=== PATIENT | male | born 1950 | race Caucasian/White ===

== ENCOUNTER 2017-11-29 00:25 | Emergency (ER) | payer OTHER ==
[~2017-11-29] VITALS: Ht 170.2 cm; Wt 90.7 kg
[2017-11-29 01:11] LABS: BASOPHILS # (AUTO) 0.1 K/uL (0.0-8.0); BASOPHILS % (AUTO) 1.1 % (0.0-2.0); EOSINOPHILS # (AUTO) 0.4 K/uL (0.0-0.7); EOSINOPHILS % (AUTO) 3.2 % (0.0-7.0); HEMATOCRIT 29.7 % (36.7-47.1); HEMOGLOBIN 10.2 g/dL (12.5-16.3); LYMPHOCYTES # (AUTO) 1.5 K/uL (20.0-40.0); LYMPHOCYTES % (AUTO) 12.4 % (20.5-51.5); MEAN CORPUSCULAR HEMOGLOBIN 34.7 uug (23.8-33.4); MEAN CORPUSCULAR HGB CONC 34 g/dL (32.5-36.3); MEAN CORPUSCULAR VOLUME 100.9 fL (73.0-96.2); MONOCYTES # (AUTO) 0.9 K/uL (2.0-10.0); MONOCYTES % (AUTO) 7.2 % (0.0-11.0); NEUTROPHILS # (AUTO) 9.3 K/uL (1.8-8.9); NEUTROPHILS % (AUTO) 76.1 % (38.5-71.5); PLATELET COUNT (AUTO) 378 K/uL (152-348); RED BLOOD CELL COUNT(AUTO) 2.94 MIL/uL (4.06-5.63); WHITE BLOOD COUNT (AUTO) 12.2 K/uL (3.6-10.2)
[2017-11-29 01:24] LABS: BILIRUBIN,DIRECT 0.1 mg/dL (0.0-0.2); BILIRUBIN,TOTAL 0.4 mg/dL (0.2-1.0); CREATININE 0.9 mg/dL (0.6-1.3); POTASSIUM 4.7 mmol/L (3.5-5.1); TOTAL PROTEIN, SERUM 5.2 g/dL (6.4-8.2)
--- NOTE | 2017-11-29 01:30 | NUR ---
PT IN BED. PT IS CONFUSED AND DISORIENTED. PT IS BEING PULLING AT IV LINE AND NG TUBING AND INTERFERING MEDICAL CARE. WILL CONSULT WITH MD BURKS ABOUT POSSIBLE SOLUTIONS.
[2017-11-29] MEDS ORDERED: LAMO150T2 PO (01:39)
[2017-11-29] MEDS ORDERED: CLON0.5T PO (01:39)
[2017-11-29] MEDS ORDERED: CALC-20 PO (01:39)
[2017-11-29] MEDS ORDERED: BECL10.62 IH (01:39)
[2017-11-29] MEDS ORDERED: ALBU18HF2 INH (01:39)
[2017-11-29] MEDS ORDERED: BECLOMETHASONE (01:39)
[2017-11-29] MEDS ORDERED: ATOR20TA PO (01:39)
[2017-11-29] MEDS ORDERED: FOLI1TAB16 PO (01:39)
[2017-11-29] MEDS ORDERED: LOSA50TA21 PO (01:39)
[2017-11-29] MEDS ORDERED: POTA10CA43 PO (01:39)
[2017-11-29] MEDS ORDERED: DOXY100C41 PO (01:39)
[2017-11-29] MEDS ORDERED: PANT40TA2 PO (01:39)
[2017-11-29] MEDS ORDERED: METH-406 PO (01:39)
[2017-11-29] MEDS ORDERED: SUCRALFATE 100 MG/ML PO (01:39)
[2017-11-29] MEDS ORDERED: LORAZEPAM 2 MG/1 ML VIAL IV ONE (02:30)
[2017-11-29] MEDS ORDERED: PANTOPRAZOLE SODIUM IV 40 MG in IV DEXTROSE 5% 100 ML IV ONE (02:30)
[2017-11-29] MEDS ORDERED: ONDANSETRON IV *ER 4 MG/2 ML VIAL IV ONE (02:30)
[2017-11-29] MEDS ORDERED: ONDANSETRON 4 MG/2 ML VIAL ONE (02:37)
[2017-11-29] MEDS ORDERED: PANTOPRAZOLE SODIUM 40 MG VIAL ONE (02:37)
[2017-11-29] MEDS ORDERED: LORAZEPAM 2 MG/1 ML VIAL ONE (02:38)
--- NOTE | 2017-11-29 02:45 | NUR ---
PT IN BED. PT IS STILL CONFUSED AND NOT WILLING TO COOPERATE WITH MEDICAL CARE. PT HAS BEEN PLACED IN RESTRAINTS. NG TUBE HAS COLLECTED ROUGHLY 350MLS OF STOMACH CONTENT. WILL CONTINUE TO MONITOR PT CIRCULATION Q 2HR.
--- NOTE | 2017-11-29 03:25 | NUR ---
PT IN BED. PT IS WATCHING TV. PT'S FAMILY IS AT BEDSIDE.
--- NOTE | 2017-11-29 03:30 | NUR ---
CALL [facility] TO ARR[facility]SPORTATION FOR PT.
--- NOTE | 2017-11-29 03:45 | NUR ---
MD BURKS RECEIVED PHONE CALL FROM [facility] MD DIOGO MCCARTHY DECIDE THE BEST TIME OF TRANSPORTATION TO [facility].
[2017-11-29 03:59] LABS: BASOPHILS # (AUTO) 0.1 K/uL (0.0-8.0); EOSINOPHILS # (AUTO) 0.4 K/uL (0.0-0.7); EOSINOPHILS % (AUTO) 3.2 % (0.0-7.0); HEMATOCRIT 29.7 % (36.7-47.1); HEMOGLOBIN 10.1 g/dL (12.5-16.3); LYMPHOCYTES # (AUTO) 1.4 K/uL (20.0-40.0); LYMPHOCYTES % (AUTO) 12.6 % (20.5-51.5); MEAN CORPUSCULAR HEMOGLOBIN 34.3 uug (23.8-33.4); MEAN CORPUSCULAR HGB CONC 34 g/dL (32.5-36.3); MEAN CORPUSCULAR VOLUME 100.4 fL (73.0-96.2); MONOCYTES # (AUTO) 0.9 K/uL (2.0-10.0); MONOCYTES % (AUTO) 7.6 % (0.0-11.0); NEUTROPHILS # (AUTO) 8.6 K/uL (1.8-8.9); NEUTROPHILS % (AUTO) 75.6 % (38.5-71.5); PLATELET COUNT (AUTO) 415 K/uL (152-348); RED BLOOD CELL COUNT(AUTO) 2.95 MIL/uL (4.06-5.63); WHITE BLOOD COUNT (AUTO) 11.4 K/uL (3.6-10.2)
--- NOTE | 2017-11-29 04:50 | NUR ---
RECEIVED [facility] INFO. PT BEING TRANSFERRED TO [facility], BEING SEEN BY Bertin AVELAR. PT IS GOING TO ROOM #[id number].
--- NOTE | 2017-11-29 05:16 | NUR ---
Report given to Andre Steiner discharge rn nurse at [facility]. Patient to be transfered to [facility], room 4064. Under the care of Dr Oliva. Contact number for issues: [phone].
--- NOTE | 2017-11-29 07:09 | NUR ---
PT IN ROUTE TO [facility]. REPORT AND ALL NECESSARY DOCUMENTATION GIVEN TO MELISSA LOU UN[address].
== END 2017-11-29 07:21 | disposition short-term general hospital (02) ==
LOC: ER 00:28
DX: K92.2 Gastrointestinal hemorrhage, unspecified (principal); D64.9 Anemia, unspecified; R78.89 Finding of other specified substances, not normally found in blood; I10 Essential (primary) hypertension; J44.9 Chronic obstructive pulmonary disease, unspecified; K21.9 Gastro-esophageal reflux disease without esophagitis; Z88.8 Allergy status to other drugs, medicaments and biological substances; Z91.048 Other nonmedicinal substance allergy status; Z79.2 Long term (current) use of antibiotics; Z79.899 Other long term (current) drug therapy
CPT/HCPCS: 36415; 70030-TC; 71045; 85025; 85730; 86850; 86900; 86901; 93005; A4663; C9113; J2060; J2405; J7030; J7060